=== PATIENT | female | born 1975 | race Caucasian/White ===

== ENCOUNTER 2019-09-30 15:31 | Emergency (ER) | payer OTHER, MEDICAID, SELFPAY ==
[2019-09-30 15:57] VITALS: BP 126/86; PULSE 76; RESP 20; TEMP 36.8; O2SAT 100
--- NOTE | 2019-09-30 16:01 | DI.US.S_ITS ---
PROCEDURE: US PERIPH VENOUS LOW EXTREM BI INDICATIONS: SWELLING IN BILAT EXT, HX OF DVT TECHNIQUE: Real-time imaging, as well as color and pulse Doppler interrogation, were performed of the deep veins of both legs from the inguinal ligament to the popliteal fossa. COMPARISON: None. FINDINGS: Right: The common femoral, femoral and popliteal veins are normally compressible, and free of intraluminal thrombus. Color and pulse Doppler demonstrate normal phasic intravascular flow. There is normal augmentation response to distal compression maneuver. Left: The common femoral, femoral and popliteal veins are normally compressible, and free of intraluminal thrombus. Color and pulse Doppler demonstrate normal phasic intravascular flow. There is normal augmentation response to distal compression maneuver. IMPRESSION: No evidence of deep vein thrombosis of the bilateral lower extremities. Dictated by: Rajan Cabrera M.D. on 09/30/2019 at 15:56 Approved by: Rajan Cabrera M.D. on 09/30/2019 at 15:58
--- NOTE | 2019-09-30 18:14 | ED_ITS ---
HPI - Extremity Problem General Chief complaint: Extremity Problem,Nontraumatic Stated complaint: Thinks Blood Clot In Right Leg Time Seen by Provider: 09/30/19 18:14 Source: patient Mode of arrival: Ambulatory Limitations: no limitations History of Present Illness HPI Narrative: 43-year-old female here for evaluation for potential blood clot in her right lower extremity. Patient has had a DVT in her left lower e xtremity. Was on Xarelto. Never had a pulmonary embolism. Is not currently on any anticoagulation. She states that then DVT was secondary to immobility at the time. States that earlier today she felt a lump in her right lower extremity. She also has history of varicose veins. Fairly pinpoint tenderness over this lump. No chest pain or shortness of breath. She was concerned about another blood clot. Related Data Home Medications Medication Instructions Recorded Confirmed thyroid (pork) [[place] Thyroid] 120 mg PO DAILY 09/30/19 Review of Systems Constitutional Constitutional: Denies fever(s) Cardiovascular Cardiovascular: Denies chest pain and Denies dyspnea Respiratory Respiratory: Denies dyspnea Gastrointestinal Gastrointestinal: Denies abdominal pain, Denies nausea and Denies vomiting Musculoskeletal Comments: Lump on her right lower extremity Integumentary/Breasts Skin/Breast: Denies lesions and Denies rash Neurologic Neurologic: Denies behavioral changes Psychiatric Psychiatric: Denies behavioral changes Hematologic/Lymphatic Hematologic/Lymphatic: Denies easy bleeding and Denies easy bruising Patient History Medical History DVT (deep venous thrombosis) (Acute) Varicose vein of leg (Acute) Social History lives independently: Yes Exam Initial Vital Signs Initial Vital Signs: Vital Signs Temperature 98.2 F 09/30/19 15:57 Pulse Rate 76 09/30/19 15:57 Respiratory Rate 20 09/30/19 15:57 Blood Pressure 126/86 09/30/19 15:57 Pulse Oximetry 100 09/30/19 15:57 Const General: cooperative, comfortable and well developed Resp Effort & Inspection: normal respiratory effort Skin Lesions: no lesions Rashes: no rashes Extrem Other: Patient with a 1 cm x 1 cm well-defined soft easily movable subcutaneous lump on the medial aspect of her right lower extremity approximately midline between the knee and the ankle. Psych Appearance: grossly normal and well kempt Course Orders Ordered: ED Orders 09/30/19 16:01 US periph venous low extrem bi Stat Vital Signs Vital signs: Vital Signs - 8 hr 09/30/19 15:57 09/30/19 18:37 Temperature 98.2 F Pulse Rate 76 85 Respiratory Rate 20 Blood Pressure 126/86 133/83 Pulse Oximetry 100 98 MDM - Extremity (Nontraumatic) Imaging Data US - DVT: Radiologist's Impression: [address] [address] Ultrasound Report Signed Patient: Gay Cummings#: [id number] : 1975Acct:[id number] Age/Sex: 43 / FDate of Service: 09/30/19 Loc: ED Accession Number: [id number] Procedure: US periph venous low extrem bi Ordering Provider: Adan Harding MD PROCEDURE: US PERIPH VENOUS LOW EXTREM BI INDICATIONS: SWELLING IN BILAT EXT, HX OF DVT TECHNIQUE: Real-time imaging, as well as color and pulse Doppler interrogation, were performed of the deep veins of both legs from the inguinal ligament to the popliteal fossa. COMPARISON: None. FINDINGS: Right: The common femoral, femoral and popliteal veins are normally compressible, and free of intraluminal thrombus. Color and pulse Doppler demonstrate normal phasic intravascular flow. There is normal augmentation response to distal compression maneuver. Left: The common femoral, femoral and popliteal veins are normally compressible, and free of intraluminal thrombus. Color and pulse Doppler demonstrate normal phasic intravascular flow. There is normal augmentation response to distal compression maneuver. IMPRESSION: No evidence of deep vein thrombosis of the bilateral lower extremities. Dictated by: Rajan Cabrera M.D. on 09/30/2019 at 15:56 Approved by: Rajan Cabrera M.D. on 09/30/2019 at 15:58 [facility] Narrative Medical decision making narrative: DVT ultrasound is negative. The lump in her right lower extremity is not consistent with an infection or abscess. Fairly localized. Could potentially be a varicose vein. Discussed this with the patient. We did discuss return precautions and follow-up instructions. She expressed understanding and agreement plan. Discharge Plan Departure Patient Disposition: Home Clinical Impression: Lump of skin of right lower extremity Discharge Date/Time: 09/30/19 18:38 Activity Restrictions/Additional Instructions: Recommend you talk with your primary provider about further workup. Return to the emergency department if the lump becomes larger or the skin over top of it becomes red. Prescriptions: No Action thyroid (pork) [[place] Thyroid] 60 mg tablet 120 mg PO DAILY RF: 0
[2019-09-30 18:37] VITALS: BP 133/83; PULSE 85; O2SAT 98
== END 2019-09-30 18:38 | disposition home or self-care (01) ==
PROVIDERS: Emergency Provider Emergency Medicine
DX: R22.41 Localized swelling, mass and lump, right lower limb (principal); Z86.718 Personal history of other venous thrombosis and embolism
CPT/HCPCS: 93970; 99281; 99283

== ENCOUNTER → 2021-11-22 16:49 | Outpatient (CLI) | payer OTHER, SELFPAY ==
[2021-11-22 18:27] LABS: COVID19 -Nasal RAPID Negative (Negative)
== END ==
PROVIDERS: PCP Internal Medicine; Visit Provider Obstetrics & Gynecology
DX: Z01.812 Encounter for preprocedural laboratory examination (principal); Z20.822 Contact with and (suspected) exposure to COVID-19
CPT/HCPCS: 87635

== ENCOUNTER 2021-11-23 13:23 | Day surgery (SDC) | payer OTHER, MEDICAID, SELFPAY ==
[2021-11-18 11:02] VITALS: BMI 30.8
--- NOTE | 2021-11-23 | PATH_ITS ---
[facility] Accession Number: [id number] . 01 Material submitted: . uterus - UTERINE CURETTINGS . 02 Diagnosis: Uterine Curettings: Patchy glandular crowding. Background of disordered proliferative endometrium; negative for cytologic atypia or malignancy. Some endometrial fragments demonstrate prominent vessels, suggestive of polyp, if clinical and imaging studies are concordant. Portions of squamous mucosa; negative for squamous dysplasia or malignancy. Portions of endocervix with squamous metaplasia; negative for dysplasia or malignancy. MRV 11/25/2021 1344 Local . 02 Electronically signed: . Daphne Salter MD, Pathologist NPI- [id number] . 01 Gross description: . UTERINE CURETTINGS: Received in formalin are minute fragments of mucoid and hemorrhagic material measuring 3.0 x 2.0 x 0.2 cm in aggregate. Submitted in toto in 1 cassette. /CPE 11/24/2021 0556 Local . 02 Pathologist provided ICD-10: N92.0 . 02 CPT . 527343 Specimen Comment: A courtesy copy of this report has been sent to [phone] Performed at: 01 [facility] Cytology [address] [facility], [place], [place] [id number] MD Kaiden Mir MD Phone: [phone] Performed at: 02 [facility] [address] [place], [place] [id number] MD Michelle Rodriguez MD Phone: [phone]
[2021-11-23 13:58] VITALS: BMI 30.8
[2021-11-23 14:09] VITALS: BP 130/78; PULSE 70; RESP 16; TEMP 36.3; O2SAT 100
[2021-11-23] MEDS: LACTATED RINGERS 1,000 ML 42 ML IV (14:13)
--- NOTE | 2021-11-23 14:47 | PM.PREOP ---
Pre-operative Note COVID-19 COVID-19 status: Negative Result date/Date tested (Pos, Neg/Pending): 11/22/21 Criteria for continued procedure: Expected advancement of disease process Interval Note History & Physical reviewed/Exam performed by Physician: Yes Changes to H&P: No
--- NOTE | 2021-11-23 15:34 | SUR.OPER ---
Lithotomy on padded OR bed, head on pillow, arms secured on padded arm boards at <90 degrees abduction. Legs secured in padded yellow fins stirrups.
[2021-11-23 15:38] VITALS: BP 114/56; PULSE 89; RESP 13; TEMP 36.4; O2SAT 99
--- NOTE | 2021-11-23 15:39 | P.OP_ITS ---
Operative Date/Time/Diagnoses Date of procedure: 11/23/21 Time of procedure: 15:39 Pre-op diagnosis: Menorrhagia Post-op diagnosis: same Procedure & Clinicians Procedure: Hysteroscopy D&C Same procedure as scheduled: Yes Indications: Menorrhagia Surgeon: Chloe Al Click Yes if Unassisted: Yes Anesthesia Type: General Operative Notes Findings: Bicornuate uterus, small endometrial polyps and endocervical polyps Closure Type: not applicable Specimen(s): other (Endometrial curettage) Estimated Blood Loss (mL): 5 Blood products transfused: none Procedure in detail: The patient was brought to the operating room where she underwent general anes thesia. She was placed in low stirrups. She was prepped and draped in usual sterile fashion with pulsatile stockings in place and functional, warming in place. No antibiotics indicated. Her bladder was drained with in and out catheter. A single-tooth tenaculum was placed on the anterior lip of the cervix and the uterus dilated to #8 Hegar dilator. The hysteroscope was placed into the uterus with a sorbitol solution running and under constant suction. An endometrial curettage was performed. The endometrial curettage was sent to pathology. The patient went to recovery room in good condition counts of instruments and sponges were correct. The sorbitol solution I=O approximately 2000 mL. Complications: none Post-operative Condition: stable Disposition: same day surgery Plan for aftercare: Home when awake and stable. Treatment and follow-up based on biopsy results.
[2021-11-23 15:43] VITALS: BP 120/61; PULSE 73; RESP 14; O2SAT 98
[2021-11-23 15:58] VITALS: BP 111/39; PULSE 64; RESP 13; O2SAT 100
[2021-11-23] MEDS: OXYCODONE IR 5 MG TABLET PO (16:04)
[2021-11-23] MEDS: hydrOXYzine pamoate 25 MG CAPSULE PO (16:04)
[2021-11-23 17:20] VITALS: BP 106/73; PULSE 73; RESP 16; O2SAT 100
== END 2021-11-23 17:25 | disposition home or self-care (01) ==
PROVIDERS: PCP Internal Medicine; Referring Provider Specialist; Visit Provider Specialist
PROC: 0UDB8ZZ Extraction of Endometrium, Via Natural or Artificial Opening Endoscopic (ICD-10-PCS; CPT 58558; principal; 2021-11-23 15:00)
DX: N92.0 Excessive and frequent menstruation with regular cycle (principal); E03.9 Hypothyroidism, unspecified; Z86.718 Personal history of other venous thrombosis and embolism; Q51.3 Bicornate uterus; N84.0 Polyp of corpus uteri; N84.1 Polyp of cervix uteri
CPT/HCPCS: 58558; 81025; J1100; J1885; J2250; J2405; J2704; J3010

== ENCOUNTER 2022-07-03 10:09 | Emergency (ER) | payer OTHER, MEDICAID, SELFPAY ==
[2022-07-03] VITALS (8 sets, daily range): BP systolic 117–142; BP diastolic 69–95; PULSE 63–76; RESP 13–22; TEMP 36.1; O2SAT 97–100; BMI 31.0
--- NOTE | 2022-07-03 12:13 | ED.MEDCLEAR ---
HPI - Medical Clearance General Chief complaint: Medical Clearance Stated complaint: haven't slept in a week sleeping issues since Radha Time Seen by Provider: 07/03/22 11:02 Source: patient Mode of arrival: Ambulatory History of Present Illness HPI Narrative: 46-year-old female nonsmoker with history of hypothyroid presents with significant other and a chief complaint of difficulty with sleep for the past few months. She states that she has tried everything she can think of regarding her sleep routine including lack of screens, no caffeine after 10:00 a.m., various [id number] medications including Benadryl, melatonin, Unisom, NyQuil and even smoked cannabis last night for the 1st time in 30 years. She is here today because she states she is not slept 1 minute for the past week and is fatigued and exhausted. She denies any significant stressors at home, change in work patterns, new [id number] medications or supplements. Related Information Home Medications Medication Instructions Recorded Confirmed thyroid (pork) 60 mg tablet 120 mg PO DAILY 09/30/19 11/23/21 ([place] Thyroid) Previous Rx's Medication Instructions Recorded tramadol 50 mg tablet 50 mg PO Q6H PRN pain #20 tabs 11/19/21 zolpidem 5 mg tablet (Ambien) 5 mg PO BEDTIME PRN insomnia #20 07/03/22 tabs Allergies Allergy/AdvReac Type Severity Reaction Status Date / Time No Known Drug Allergies Allergy Verified 11/22/21 15:03 Review of Systems Review of Systems Narrative: GENERAL: Denies chills, fatigue, malaise, fever, sweats. HEENT: Denies sinus pain, ear pain, sore throat, difficulty swallowing, dizziness. RESPIRATORY: Denies dyspnea, cough, wheezing, hemoptysis, sputum. CARDIOVASCULAR: Denies chest pain, palpitations, orthopnea, edema, GASTROINTESTINAL: Denies nausea, vomiting, abdominal pain, diarrhea, constipation, melena. : Denies dysuria, frequency, incontinence, hematuria, urinary retention. MUSCULOSKELETAL: denies weakness, joint pain, or bony pain SKIN: Denies rash, skin lesions, or other NEUROLOGIC: Denies weakness, headache, numbness, change in speech, confusion, seizures, incoordination. PSYCHIATRIC: No concerning psychosocial issues. 12 point review of systems is negative except for those stated above Patient History Medical History Abnormal Pap smear of cervix (~1998) Acne (~2020) Anemia Chicken pox (~1979) DVT (deep venous thrombosis) (~2017) Graves disease (~1994) Herpes (~1990) Irregular menstrual cycle Painful menstrual periods (~2017) Thyroid nodule (~1997) Varicose vein of leg Surgical History Anesthesia History of section (~10/1995) History of section (~08/1998) History of surgery (~2017) History of thyroid surgery (~04/2001) History of tubal ligation (~05/1999) Family History Father Congestive heart failure Mother Hyperlipidemia Social History household members: spouse and children lives independently: Yes Smoking Status: Former smoker alcohol intake: current Smoking Status: Former smoker alcohol intake frequency: a few times a month Substance Use Type: does not use Exam Narrative Exam Narrative: GENERAL: [46] year old patient appears stated age. Well-developed patient, in mild distress. Clearly frustrated HEAD: Atraumatic. Normocephalic. EYES: Pupils equal round and reactive. Extraocular motions intact. No scleral icterus. No injection or drainage. ENT: Nose without bleeding, purulent drainage. Throat without erythema, tonsillar hypertrophy or exudate. Airway patent. NECK: Trachea midline. Non tender CARDIOVASCULAR: Regular rate and rhythm without murmurs, gallops, or rubs. RESPIRATORY: Clear to auscultation. Breath sounds equal bilaterally. No wheezes, rales, or rhonchi. GASTROINTESTINAL: Abdomen soft, non-tender, nondistended. EXTREMITIES: No edema or joint tenderness. BACK: Nontender without deformity or crepitance. No flank tenderness. NEURO: AOx3. SKIN: No rash or erythema of visible areas Initial Vital Signs Initial Vital Signs: Vital Signs Temperature 96.9 F L 07/03/22 10:37 Pulse Rate 76 07/03/22 10:37 Respiratory Rate 18 07/03/22 10:37 Blood Pressure 117/70 07/03/22 10:37 Pulse Oximetry 99 07/03/22 10:37 Oxygen Delivery Method 10/30/22 10:37 MDM - Medical Clearance Lab Data Result diagrams: 07/03/22 12:40 07/03/22 12:40 Labs: Lab Results 07/03/22 07/03/22 07/03/22 Range/Units 12:40 12:40 12:40 WBC 5.4 (4.5-11.0) X10^3/uL RBC 4.59 (4.0-5.2) X10^6/uL Hgb 13.1 (12.0-16.0) g/dL Hct 38.9 (36-46) % MCV 84.7 (80-100) fL MCH 28.4 (26-34) PG MCHC 33.6 (30-36) % RDW 13.9 (11.6-14.8) % Plt Count 310 (150-400) X10^3/uL Neut % (Auto) 62.8 (50-75) % Lymph % (Auto) 28.9 (25-40) % [place] % (Auto) 6.1 (3-14) % Eos % (Auto) 1.2 L (2-4) % Baso % (Auto) 1.0 (0-2) % Neut # (Auto) 3400 (3824-7435) /uL Lymph # (Auto) 1600 (8141-5095) /uL [place] # (Auto) 300 (0-900) /uL Eos # (Auto) 100 (0-450) /uL Baso # (Auto) 100 (0-100) /uL Sodium 139 (137-145) mmol/L Potassium 4.7 (3.4-5.1) mmol/L Chloride 104 (98-107) mmol/L Carbon Dioxide 27 (22-32) mmol/L BUN 15 (7-17) mg/dL Creatinine 0.70 (0.52-1.04) mg/dL Estimated GFR > 60 (>60) mL/min BUN/Creatinine Ratio 21.4 (6-22) Glucose 78 (70-100) mg/dL Calcium 9.1 (8.4-10.2) mg/dL TSH 2.30 (0.47-4.68) uIU/mL Discharge Plan Departure Patient Disposition: Home Clinical Impression: Insomnia Activity Restrictions/Additional Instructions: *You have been diagnosed with [insomnia. Thankfully your history and physical exam are very reassuring and there are no significant lab abnormalities.] *What to do: *Please continue to take your regular medications as directed. [x ] New medication prescriptions sent to your pharmacy: [[facility] ] [ ] New medication written as a paper prescription [ ] No new medications given *Please follow up with your primary care provider in 2-3 days, call for an appointment. Let them know you were seen in the Emergency Department and that we ask that you be seen in follow up. We will electronically transmit a record of today's note if your PCP is in our system *If you do not have a primary care provider please contact the [facility] Resource line at [phone]. They will ask some questions about your medical history and help get you set up with a doctor in the community. *Return to Emergency Department if you should have any new, worsening or concerning symptoms, such as [fever greater than 101 F, shaking chills, worsening pain, persistent vomiting or other bothersome symptoms] Prescriptions: New zolpidem [Ambien] 5 mg tablet 5 mg PO BEDTIME PRN (Reason: insomnia) Qty: 20 0RF No Action tramadol 50 mg tablet 50 mg PO Q6H PRN (Reason: pain) Qty: 20 0RF Label Comments: post op prescription. has not yet started thyroid (pork) [[place] Thyroid] 60 mg tablet 120 mg PO DAILY Referrals: Patricio Maldonado MD [Primary Care Provider] -
[2022-07-03 12:53] LABS: Add Manual Diff / Slide Review NO; Basophils Absolute Auto 100 /uL (0-100); Eosinophils Absolute Auto 100 /uL (0-450); Eosinophils Percent Auto 1.2 % (2-4); Hematocrit 38.9 % (36-46); Hemoglobin 13.1 g/dL (12.0-16.0); Lymphocytes Absolute Auto 1600 /uL (1100-4500); Lymphocytes Percent Auto 28.9 % (25-40); Mean Corpuscular HGB Conc 33.6 % (30-36); Mean Corpuscular Hemoglobin 28.4 PG (26-34); Mean Corpuscular Volume 84.7 fL (80-100); Monocytes Absolute Auto 300 /uL (0-900); Monocytes Percent Auto 6.1 % (3-14); Neutrophils Absolute Auto 3400 /uL (1500-7000); Neutrophils Percent Auto 62.8 % (50-75); Platelet Count 310 X10^3/uL (150-400); Red Blood Cell Count 4.59 X10^6/uL (4.0-5.2); Red Cell Distribution Width 13.9 % (11.6-14.8); White Blood Cell Count 5.4 X10^3/uL (4.5-11.0)
[2022-07-03 13:01] LABS: BUN Creatinine Ratio 21.4 (6-22); Blood Urea Nitrogen 15 mg/dL (7-17); Calcium 9.1 mg/dL (8.4-10.2); Carbon Dioxide 27 mmol/L (22-32); Chloride 104 mmol/L (98-107); Estimated Glomerular Filt Rate > 60 mL/min (>60); Glucose 78 mg/dL (70-100); HEMOLYSIS < 15 (0-50); Potassium 4.7 mmol/L (3.4-5.1); Sodium 139 mmol/L (137-145)
== END 2022-07-03 14:22 | disposition home or self-care (01) ==
PROVIDERS: Emergency Provider Emergency Medicine; PCP Internal Medicine
DX: G47.00 Insomnia, unspecified (principal)
CPT/HCPCS: 36415; 80048; 84443; 85025; 99281; 99283

== ENCOUNTER 2022-11-27 03:44 | Emergency (ER) | payer OTHER, SELFPAY ==
[2022-11-27] VITALS (7 sets, daily range): BP systolic 108–123; BP diastolic 61–76; PULSE 55–64; RESP 16; TEMP 36.3; O2SAT 98–100; BMI 29.5
--- NOTE | 2022-11-27 04:10 | ED_ITS ---
HPI - Headache <Ana Zapien MD - Last Filed: 12/06/22 18:33> General Chief Complaint: Headache Stated Complaint: RT. side back of head pain Time Seen by Provider: 11/27/22 04:09 Mode of arrival: Ambulatory History of Present Illness HPI Narrative: 47-year-old woman with history of hypothyroidism who presents complaining right-sided stabbing head pain that has been a problem for the last 6 weeks. She is been having significant insomnia issues and this is overshadowed the head pain until this most recent week. On November 21 the head pain started. By the it had persisted long enough she called her primary care physician and has an appointment scheduled for November 30. They discussed the possibility of ordering an MRI. The patient states that she took some Aleve did not find it helpful has not used additional pain medication. She has a history of a DVT is not currently anticoagulated but tries to avoid nonsteroidals because of this history. She is very specific in that this is a sharp stabbing pain above her ear and on the side of her head rather than acute headache. She is not complaining of photophobia, nausea, dizziness, abdominal pain, fevers, vision changes Related Data Home Medications Medication Instructions Recorded Confirmed thyroid (pork) 60 mg tablet 120 mg PO DAILY 09/30/19 11/23/21 ([place] Thyroid) Previous Rx's Medication Instructions Recorded tramadol 50 mg tablet 50 mg PO Q6H PRN pain #20 tabs 11/19/21 zolpidem 5 mg tablet (Ambien) 5 mg PO BEDTIME PRN insomnia #20 07/03/22 tabs Allergies Allergy/AdvReac Type Severity Reaction Status Date / Time No Known Drug Allergies Allergy Verified 11/22/21 15:03 Patient History <Ana Zapien MD - Last Filed: 12/06/22 18:33> Medical History Abnormal Pap smear of cervix (~1998) Acne (~2020) Anemia Chicken pox (~1979) DVT (deep venous thrombosis) (~2017) Graves disease (~1994) Herpes (~1990) Irregular menstrual cycle Painful menstrual periods (~2017) Thyroid nodule (~1997) Varicose vein of leg Surgical History Anesthesia History of section (~10/1995) History of section (~08/1998) History of surgery (~2017) History of thyroid surgery (~04/2001) History of tubal ligation (~05/1999) Family History Father Congestive heart failure Mother Hyperlipidemia Social History household members: spouse and children lives independently: Yes Smoking Status: Former smoker alcohol intake: current Smoking Status: Former smoker alcohol intake frequency: a few times a month Substance Use Type: does not use Exam <Ana Zapien MD - Last Filed: 12/06/22 18:33> Initial Vital Signs Initial Vital Signs: Vital Signs Temperature 97.4 F L 11/27/22 03:58 Pulse Rate 64 11/27/22 03:58 Respiratory Rate 16 11/27/22 03:58 Blood Pressure 108/68 11/27/22 03:58 Pulse Oximetry 100 11/27/22 03:58 Oxygen Delivery Method Room Air 11/27/22 03:58 General: Healthy appearing, in no acute distress. Able to give a complete and coherent history. Well-nourished well-developed HEENT: Moist mucous membranes, normal sclera with reactive pupils, extraocular eye movement is intact. She does have dark circles under her eyes. She describes tenderness to palpation just above her ear on the right side with no skin changes or associated rash. pain is posterior to the ear and posterior to trigeminal enervation Neck: No Cervical adenopathy, supple Respiratory: Lungs are clear to auscultation, no wheezing no rales no rhonchi. Full and symmetrical air movement Cardiac: Regular rate and rhythm no murmurs no bruits Abdomen: Soft, nontender, good bowel tones, no flank pain Skin: Warm and dry, no rashes Neurologic: Grossly neurologically intact with no obvious asymmetries or abnormalities Extremities: No trauma, well perfused Psych: Cooperative, appropriate insight and affect <Sumaya Keene DO - Last Filed: 11/27/22 07:57> Initial Vital Signs Initial Vital Signs: Vital Signs Temperature 97.4 F L 11/27/22 03:58 Pulse Rate 64 11/27/22 03:58 Respiratory Rate 16 11/27/22 03:58 Blood Pressure 108/68 11/27/22 03:58 Pulse Oximetry 100 11/27/22 03:58 Oxygen Delivery Method Room Air 11/27/22 03:58 Course <Ana Zapien MD - Last Filed: 12/06/22 18:33> Orders Ordered: Discontinued Medications Dexamethasone (Dexamethasone 10 Mg/Ml Vial) 10 mg IV NOW ONE Stop: 11/27/22 04:26 Last Admin: 11/27/22 04:50 Dose: 10 mg Documented By: ZELALEM Sodium Chloride (Normal Saline 0.9%) 1,000 mls @ 1,000 mls/hr IV BOLUS ONE Stop: 11/27/22 05:24 Last Infusion: 11/27/22 05:51 Dose: 0 mls/hr Documented By: Admin: 11/27/22 04:51 Dose: 1,000 mls/hr Documented By: ZELALEM Ketorolac Tromethamine (Ketorolac 30 Mg/Ml Vial) 30 mg IV NOW ONE Stop: 11/27/22 04:26 Last Admin: 11/27/22 04:50 Dose: 30 mg Documented By: ZELALEM Vital Signs Vital signs: Vital Signs - 8 hr 11/27/22 03:58 11/27/22 05:17 11/27/22 05:17 Temperature 97.4 F L Pulse Rate 64 58 L Respiratory Rate 16 Blood Pressure 108/68 123/76 Pulse Oximetry 100 100 Oxygen Delivery Method Room Air 11/27/22 05:30 11/27/22 05:30 11/27/22 06:00 Temperature Pulse Rate 55 L Respiratory Rate Blood Pressure 119/72 117/72 Pulse Oximetry 100 Oxygen Delivery Method 11/27/22 06:00 11/27/22 06:30 11/27/22 06:30 Temperature Pulse Rate 60 59 L Respiratory Rate Blood Pressure 112/66 Pulse Oximetry 100 99 Oxygen Delivery Method 11/27/22 07:00 11/27/22 07:00 11/27/22 07:30 Temperature Pulse Rate 60 Respiratory Rate Blood Pressure 116/67 120/61 Pulse Oximetry 98 Oxygen Delivery Method 11/27/22 07:30 Temperature Pulse Rate 63 Respiratory Rate Blood Pressure Pulse Oximetry 99 Oxygen Delivery Method <Sumaya Keene DO - Last Filed: 11/27/22 07:57> Orders Ordered: Discontinued Medications Dexamethasone (Dexamethasone 10 Mg/Ml Vial) 10 mg IV NOW ONE Stop: 11/27/22 04:26 Last Admin: 11/27/22 04:50 Dose: 10 mg Documented By: ZELALEM Sodium Chloride (Normal Saline 0.9%) 1,000 mls @ 1,000 mls/hr IV BOLUS ONE Stop: 11/27/22 05:24 Last Infusion: 11/27/22 05:51 Dose: 0 mls/hr Documented By: Admin: 11/27/22 04:51 Dose: 1,000 mls/hr Documented By: ZELALEM Ketorolac Tromethamine (Ketorolac 30 Mg/Ml Vial) 30 mg IV NOW ONE Stop: 11/27/22 04:26 Last Admin: 11/27/22 04:50 Dose: 30 mg Documented By: ZELALEM Vital Signs Vital signs: Vital Signs - 8 hr 11/27/22 03:58 11/27/22 05:17 11/27/22 05:17 Temperature 97.4 F L Pulse Rate 64 58 L Respiratory Rate 16 Blood Pressure 108/68 123/76 Pulse Oximetry 100 100 Oxygen Delivery Method Room Air 11/27/22 05:30 11/27/22 05:30 11/27/22 06:00 Temperature Pulse Rate 55 L Respiratory Rate Blood Pressure 119/72 117/72 Pulse Oximetry 100 Oxygen Delivery Method 11/27/22 06:00 11/27/22 06:30 11/27/22 06:30 Temperature Pulse Rate 60 59 L Respiratory Rate Blood Pressure 112/66 Pulse Oximetry 100 99 Oxygen Delivery Method 11/27/22 07:00 11/27/22 07:00 11/27/22 07:30 Temperature Pulse Rate 60 Respiratory Rate Blood Pressure 116/67 120/61 Pulse Oximetry 98 Oxygen Delivery Method 11/27/22 07:30 Temperature Pulse Rate 63 Respiratory Rate Blood Pressure Pulse Oximetry 99 Oxygen Delivery Method MDM - Headache <Ana Zapien MD - Last Filed: 12/06/22 18:33> Lab Data 11/27/22 04:10 11/27/22 04:10 Labs: Lab Results 11/27/22 11/27/22 Range/Units 04:10 04:10 WBC 7.2 (4.5-11.0) X10^3/uL RBC 4.55 (4.0-5.2) X10^6/uL Hgb 13.2 (12.0-16.0) g/dL Hct 39.6 (36-46) % MCV 86.9 (80-100) fL MCH 29.0 (26-34) PG MCHC 33.4 (30-36) % RDW 14.2 (11.6-14.8) % Plt Count 321 (150-400) X10^3/uL Neut % (Auto) 56.4 (50-75) % Lymph % (Auto) 33.0 (25-40) % [place] % (Auto) 6.9 (3-14) % Eos % (Auto) 2.9 (2-4) % Baso % (Auto) 0.8 (0-2) % Neut # (Auto) 4100 (2978-5820) /uL Lymph # (Auto) 2400 (7637-6876) /uL [place] # (Auto) 500 (0-900) /uL Eos # (Auto) 200 (0-450) /uL Baso # (Auto) 100 (0-100) /uL ESR 12 (0-20) MM/HR Sodium 138 (137-145) mmol/L Potassium 4.3 (3.4-5.1) mmol/L Chloride 104 (98-107) mmol/L Carbon Dioxide 29 (22-32) mmol/L BUN 14 (7-17) mg/dL Creatinine 0.69 (0.52-1.04) mg/dL Estimated GFR > 60 (>60) mL/min BUN/Creatinine Ratio 20.3 (6-22) Glucose 99 (70-100) mg/dL Calcium 9.0 (8.4-10.2) mg/dL Total Bilirubin 0.4 (0.2-1.3) mg/dL AST 32 (14-36) IU/L ALT 28 (<35) IU/L Alkaline Phosphatase 59 (38-126) U/L C-Reactive Protein < 0.5 (<1.0) mg/dL Total Protein 7.4 (6.3-8.2) g/dL Albumin 4.2 (3.5-5.0) g/dL Globulin 3.2 (1.7-4.1) g/dL Albumin/Globulin Ratio 1.3 (1.0-2.8) MDM Narrative Medical decision making narrative: CC: Right posterior/ occipital head pain. Acute, uncertain diagnosis and prognosis Corroborating data: Data collected from: patient, Medical records reviewed: gynecology, primary care and prior ER notes are all reviewed Differential considered: migraine, cluster headache, tension headache, trigeminal neuralgia although distribution seems inappropriate on further questioning, zoster, intracranial mass or tumor Exam documented above, pertinent findings include: tenderness posterior to the ear and over the occiput without any cervical or posterior cervical adenopathy. No skin changes. Lab Test results independently reviewed as above. Pertinent findings: CBC is unremarkable Chemistries are within normal limits Imaging studies independently reviewed: CT head Treatments: 1 L of saline, 10 mg of IV dexamethasone to help with inflammation and Toradol is given. She does note that she is sleepy and that the edge is definitely gone from the headache still describes it as a 5/10 but significantly improved. Re-evaluations: Discussion: Disposition: see below, along with detailed discharge instructions that have been reviewed with patient as well as indications for ED re-evaluation and additional outpatient follow up <Sumaya Keene DO - Last Filed: 11/27/22 07:57> Lab Data Labs: Lab Results 11/27/22 11/27/22 Range/Units 04:10 04:10 WBC 7.2 (4.5-11.0) X10^3/uL RBC 4.55 (4.0-5.2) X10^6/uL Hgb 13.2 (12.0-16.0) g/dL Hct 39.6 (36-46) % MCV 86.9 (80-100) fL MCH 29.0 (26-34) PG MCHC 33.4 (30-36) % RDW 14.2 (11.6-14.8) % Plt Count 321 (150-400) X10^3/uL Neut % (Auto) 56.4 (50-75) % Lymph % (Auto) 33.0 (25-40) % [place] % (Auto) 6.9 (3-14) % Eos % (Auto) 2.9 (2-4) % Baso % (Auto) 0.8 (0-2) % Neut # (Auto) 4100 (4067-9257) /uL Lymph # (Auto) 2400 (6961-0165) /uL [place] # (Auto) 500 (0-900) /uL Eos # (Auto) 200 (0-450) /uL Baso # (Auto) 100 (0-100) /uL ESR 12 (0-20) MM/HR Sodium 138 (137-145) mmol/L Potassium 4.3 (3.4-5.1) mmol/L Chloride 104 (98-107) mmol/L Carbon Dioxide 29 (22-32) mmol/L BUN 14 (7-17) mg/dL Creatinine 0.69 (0.52-1.04) mg/dL Estimated GFR > 60 (>60) mL/min BUN/Creatinine Ratio 20.3 (6-22) Glucose 99 (70-100) mg/dL Calcium 9.0 (8.4-10.2) mg/dL Total Bilirubin 0.4 (0.2-1.3) mg/dL AST 32 (14-36) IU/L ALT 28 (<35) IU/L Alkaline Phosphatase 59 (38-126) U/L C-Reactive Protein < 0.5 (<1.0) mg/dL Total Protein 7.4 (6.3-8.2) g/dL Albumin 4.2 (3.5-5.0) g/dL Globulin 3.2 (1.7-4.1) g/dL Albumin/Globulin Ratio 1.3 (1.0-2.8) Imaging Data CT scan - head: Radiologist's Impression: PROCEDURE:? CT HEAD/BRAIN WO CON ? INDICATIONS:? right side head pain for 6 weeks ? TECHNIQUE:? Noncontrast 4.5 mm thick angled axial sections acquired from the foramen magnum to the vertex, with coronal and sagittal reformats.? For radiation dose reduction, the following was used:? automated exposure control, adjustment of mA and/or kV according to patient size.? ? COMPARISON:? None. ? FINDINGS:? Image quality:? Excellent.? ? CSF spaces:? Basal cisterns are patent.? No extra-axial fluid collections.? Ventricles are normal in size and shape.? ? Brain:? No midline shift.? No intracranial masses or hemorrhage.? Hicks-white matter interface is normal.? ? Skull and face:? Calvarium and visualized facial bones are intact, without suspicious lesions.? ? Sinuses:? Visualized sinuses and mastoids are clear.? ? IMPRESSION:? No acute intracranial abnormality. Concordant with preliminary interpretation. ? ? Dictated by: Monet Duarte M.D. on 11/27/2022 at 7:4 MDM Narrative Medical decision making narrative: CC: Right posterior/ occipital head pain. Acute, uncertain diagnosis and prognosis Corroborating data: Data collected from: patient, Medical records reviewed: gynecology, primary care and prior ER notes are all reviewed Differential considered: migraine, cluster headache, tension headache, trigeminal neuralgia although distribution seems inappropriate on further questioning, zoster, intracranial mass or tumor Exam documented above, pertinent findings include: tenderness posterior to the ear and over the occiput without any cervical or posterior cervical adenopathy. No skin changes. Lab Test results independently reviewed as above. Pertinent findings: CBC is unremarkable Chemistries are within normal limits Imaging studies independently reviewed: CT head Treatments: 1 L of saline, 10 mg of IV dexamethasone to help with inflammation and Toradol is given. She does note that she is sleepy and that the edge is definitely gone from the headache still describes it as a 5/10 but significantly improved. Re-evaluations: Discussion: Disposition: see below, along with detailed discharge instructions that have been reviewed with patient as well as indications for ED re-evaluation and additional outpatient follow up Dr. Keene-patient signed out to me by Dr. Alaniz. She is had ongoing burning sensation on the right side of her head for the last [address] today is negative blood work is reassuring. She was given Toradol saline and dexamethasone which she described as it improved however it seemed to be coming back. She is offered more pain medication however declines at this time. She is scheduled for an MRI on Monday she does not need an emergent MRI today. Discharge Plan Departure Patient Disposition: Home Clinical Impression: Head pain cephalgia Qualifiers: Headache type: unspecified Headache chronicity pattern: acute headache Intractability: not intractable Qualified Code(s): R51.9 - Headache, unspecified Instructions: DI for Headache Activity Restrictions/Additional Instructions: Thank you for coming in today Your blood work was actually reassuring. There is no evidence of significant electrolyte abnormalities, kidney or liver issues. Your CBC was reassuring with no evidence of bacterial infection. The CT scan was unremarkable. I do not have a full explanation for the right-sided head pain you are experiencing. It is behind the trigeminal nerve so I do not think that this is a trigeminal neuralgia. Please make sure you keep your appointment with your primary care doctor. I hope you find a fixable solution to this pain. Prescriptions: No Action tramadol 50 mg tablet 50 mg PO Q6H PRN (Reason: pain) Qty: 20 0RF Patient Comments: post op prescription. has not yet started thyroid (pork) [[place] Thyroid] 60 mg tablet 120 mg PO DAILY zolpidem [Ambien] 5 mg tablet 5 mg PO BEDTIME PRN (Reason: insomnia) Qty: 20 0RF Referrals: Kimber Diaz PA-C [Primary Care Provider] - Stand Alone Forms: Patient Portal/API
[2022-11-27 04:39] LABS: Alanine Aminotransferase 28 IU/L (<35); Albumin 4.2 g/dL (3.5-5.0); Albumin Globulin Ratio 1.3 (1.0-2.8); Alkaline Phosphatase 59 U/L (38-126); Aspartate Aminotransferase 32 IU/L (14-36); BUN Creatinine Ratio 20.3 (6-22); Bilirubin Total 0.4 mg/dL (0.2-1.3); Blood Urea Nitrogen 14 mg/dL (7-17); Carbon Dioxide 29 mmol/L (22-32); Chloride 104 mmol/L (98-107); Estimated Glomerular Filt Rate > 60 mL/min (>60); Globulin 3.2 g/dL (1.7-4.1); Glucose 99 mg/dL (70-100); HEMOLYSIS 34 (0-50); Potassium 4.3 mmol/L (3.4-5.1); Sodium 138 mmol/L (137-145); Total Protein 7.4 g/dL (6.3-8.2)
[2022-11-27] MEDS: DEXAMETHASONE 10 MG/ML VIAL IV (04:50)
[2022-11-27] MEDS: KETOROLAC 30 MG/ML VIAL IV (04:50)
[2022-11-27] MEDS: SODIUM CHLORIDE 0.9% 1,000 ML 1000 ML IV (04:51)
[2022-11-27 04:52] LABS: Erythrocyte Sedimentation Rate 12 MM/HR (0-20)
[2022-11-27 04:56] LABS: Add Manual Diff / Slide Review NO; Basophils Absolute Auto 100 /uL (0-100); Basophils Percent Auto 0.8 % (0-2); Eosinophils Absolute Auto 200 /uL (0-450); Eosinophils Percent Auto 2.9 % (2-4); Hematocrit 39.6 % (36-46); Hemoglobin 13.2 g/dL (12.0-16.0); Lymphocytes Absolute Auto 2400 /uL (1100-4500); Mean Corpuscular HGB Conc 33.4 % (30-36); Mean Corpuscular Volume 86.9 fL (80-100); Monocytes Absolute Auto 500 /uL (0-900); Monocytes Percent Auto 6.9 % (3-14); Neutrophils Absolute Auto 4100 /uL (1500-7000); Neutrophils Percent Auto 56.4 % (50-75); Platelet Count 321 X10^3/uL (150-400); Red Blood Cell Count 4.55 X10^6/uL (4.0-5.2); Red Cell Distribution Width 14.2 % (11.6-14.8); White Blood Cell Count 7.2 X10^3/uL (4.5-11.0)
--- NOTE | 2022-11-27 05:04 | DI.CT.S_ITS ---
PROCEDURE: CT HEAD/BRAIN WO CON INDICATIONS: right side head pain for 6 weeks TECHNIQUE: Noncontrast 4.5 mm thick angled axial sections acquired from the foramen magnum to the vertex, with coronal and sagittal reformats. For radiation dose reduction, the following was used: automated exposure control, adjustment of mA and/or kV according to patient size. COMPARISON: None. FINDINGS: Image quality: Excellent. CSF spaces: Basal cisterns are patent. No extra-axial fluid collections. Ventricles are normal in size and shape. Brain: No midline shift. No intracranial masses or hemorrhage. Hicks-white matter interface is normal. Skull and face: Calvarium and visualized facial bones are intact, without suspicious lesions. Sinuses: Visualized sinuses and mastoids are clear. IMPRESSION: No acute intracranial abnormality. Concordant with preliminary interpretation. Dictated by: Monet Duarte M.D. on 11/27/2022 at 7:41 Approved by: Monet Duarte M.D. on 11/27/2022 at 7:41
[2022-11-29 02:06] LABS: C-Reactive Protein Quant < 0.5 mg/dL (<1.0)
== END 2022-11-27 07:48 | disposition home or self-care (01) ==
PROVIDERS: Emergency Medicine; Emergency Provider Emergency Medicine; PCP Physician Assistant
DX: R51.9 Headache, unspecified (principal)
CPT/HCPCS: 36415; 70450; 80053; 85025; 85651; 86140; 96361; 96374; 96375; 99284; J1100; J1885

== ENCOUNTER 2022-12-01 20:00 | Emergency (ER) | payer OTHER, SELFPAY ==
[2022-12-01 20:10] VITALS: BP 143/84; PULSE 72; RESP 18; TEMP 36.6; O2SAT 99
[2022-12-01 21:00] LABS: Erythrocyte Sedimentation Rate 13 MM/HR (0-20)
[2022-12-01 21:05] LABS: C-Reactive Protein Quant < 0.5 mg/dL (<1.0)
--- NOTE | 2022-12-01 21:27 | ED.HA ---
HPI - Headache General Chief Complaint: Headache Stated Complaint: stabbing pain lt side of head, rt sided head pain Time Seen by Provider: 12/01/22 20:36 Source: patient Mode of arrival: Ambulatory History of Present Illness HPI Narrative: Patient is a 47-year-old female who has been having a right-sided headache for some time. She is scheduled for an MRI tomorrow. She states that it is on the right side of her head both at the top of into the back of her right ear. She is also having pain down the back of her head in the back of her neck. There is no skin rashes. She states she was told to come to the emergency department to have inflammatory markers drawn. Related Data Home Medications Medication Instructions Recorded Confirmed thyroid (pork) 60 mg tablet 120 mg PO DAILY 09/30/19 11/23/21 ([place] Thyroid) Previous Rx's Medication Instructions Recorded tramadol 50 mg tablet 50 mg PO Q6H PRN pain #20 tabs 11/19/21 zolpidem 5 mg tablet (Ambien) 5 mg PO BEDTIME PRN insomnia #20 07/03/22 tabs Allergies Allergy/AdvReac Type Severity Reaction Status Date / Time No Known Drug Allergies Allergy Verified 11/22/21 15:03 Review of Systems Constitutional Constitutional: Reports system reviewed and no additional complaints, except as documented Eyes Eyes: Reports system reviewed and no additional complaints, except as documented ENT Ears, Nose, Mouth, and Throat: Reports system reviewed and no additional complaints, except as documented Integumentary/Breasts Skin/Breast: Reports system reviewed and no additional complaints, except as documented Patient History Medical History Abnormal Pap smear of cervix (~1998) Acne (~2020) Anemia Chicken pox (~1979) DVT (deep venous thrombosis) (~2017) Graves disease (~1994) Herpes (~1990) Irregular menstrual cycle Painful menstrual periods (~2017) Thyroid nodule (~1997) Varicose vein of leg Surgical History Anesthesia History of section (~10/1995) History of section (~08/1998) History of surgery (~2017) History of thyroid surgery (~04/2001) History of tubal ligation (~05/1999) Family History Father Congestive heart failure Mother Hyperlipidemia Social History household members: spouse and children lives independently: Yes Smoking Status: Former smoker alcohol intake: current Smoking Status: Former smoker alcohol intake frequency: a few times a month Substance Use Type: does not use Exam Initial Vital Signs Initial Vital Signs: Vital Signs Temperature 97.9 F 12/01/22 20:10 Pulse Rate 72 12/01/22 20:10 Respiratory Rate 18 12/01/22 20:10 Blood Pressure 143/84 H 12/01/22 20:10 Pulse Oximetry 99 12/01/22 20:10 Oxygen Delivery Method Room Air 12/01/22 20:10 HENMT Head: normal to inspection and normocephalic Ears: TM's normal bilaterally Resp Effort & Inspection: normal respiratory effort Cardio Rate: regular rate Back/Spine/Pelvis Other: Right-sided upper back him paracervical discomfort Skin General: no rashes or lesions noted Course Orders Ordered: ED Orders 12/01/22 20:36 CRP [C-Reactive Protein Quant] Stat ESR [Erythrocyte Sedimentation Rate] Stat Vital Signs Vital signs: Vital Signs - 8 hr 12/01/22 21:38 Pulse Rate 71 Blood Pressure 120/72 Pulse Oximetry 97 Oxygen Delivery Method Room Air MDM - Headache Lab Data Labs: Lab Results 12/01/22 12/01/22 Range/Units 20:36 20:36 ESR 13 (0-20) MM/HR C-Reactive Protein < 0.5 (<1.0) mg/dL MDM Narrative Medical decision making narrative: Her ESR and CRP are normal. There unchanged from a couple days ago. She has a MRI already scheduled for tomorrow. She did have seem to have a trigger point in her right upper back. I did a trigger point injection with 2 cc of 1% lidocaine without epi. No further workup required here in the emergency department. I do agree that she needs an MRI. There are no skin changes over the area concerning for zoster. Her ear is unremarkable as well. We discussed return precautions. She expressed understanding and agreement. Discharge Plan Departure Patient Disposition: Home Clinical Impression: Headache Instructions: DI for Headache Activity Restrictions/Additional Instructions: I do recommend that you keep your appointment for the MRI that is scheduled for tomorrow. Contact your primary doctor for a follow-up. Return to the emergency department for new symptoms. Prescriptions: No Action tramadol 50 mg tablet 50 mg PO Q6H PRN (Reason: pain) Qty: 20 0RF Patient Comments: post op prescription. has not yet started thyroid (pork) [[place] Thyroid] 60 mg tablet 120 mg PO DAILY zolpidem [Ambien] 5 mg tablet 5 mg PO BEDTIME PRN (Reason: insomnia) Qty: 20 0RF Referrals: Kimber Diaz PA-C [Primary Care Provider] - Stand Alone Forms: Patient Portal/API
[2022-12-01 21:38] VITALS: BP 120/72; PULSE 71; O2SAT 97
== END 2022-12-01 21:51 | disposition home or self-care (01) ==
PROVIDERS: Emergency Provider Emergency Medicine; PCP Physician Assistant; Referring Provider Physician Assistant
DX: R51.9 Headache, unspecified (principal)
CPT/HCPCS: 36415; 85651; 86140; 99281; 99283

== ENCOUNTER → 2022-12-04 10:39 | Outpatient (CLI) | payer OTHER, MEDICAID, SELFPAY ==
--- NOTE | 2022-12-04 10:40 | DI.MRI.S_ITS ---
PROCEDURE: MR HEAD/BRAIN WO/W CON INDICATIONS: STABBING PAIN TECHNIQUE: Noncontrast axial T1 spin echo, axial T2 fast spin echo, sagittal and axial FLAIR, coronal T2 fast spin echo, axial gradient echo, axial diffusion and ADC through the brain. After the administration of contrast, axial and coronal and sagittal 3D VIBE or T1 spin echo with fat saturation through the brain. COMPARISON: [facility], CT, CT HEAD/BRAIN WO CON, 11/27/2022, 5:07. FINDINGS: Image quality: Excellent. CSF Spaces: Basal cisterns are patent. No extra-axial fluid collections. Ventricles are normal in size and shape. Brain: No midline shift. No intracranial bleeds or masses. No abnormal intracranial enhancement. The brainstem appears normal. Diffusion-weighted images demonstrate no acute ischemic insults. No chronic ischemic insults. Normal intravascular flow voids are present. Skull and face: Calvarial marrow is normal in signal. Orbits appear normal. Sinuses: Sinuses and mastoids appear clear. IMPRESSION: 1. No acute intracranial process. Dictated by: Abbey Ulloa M.D. on 12/05/2022 at 12:26 Approved by: Abbey Ulloa M.D. on 12/05/2022 at 12:28
== END ==
PROVIDERS: PCP Physician Assistant; Referring Provider Physician Assistant; Visit Provider Physician Assistant
DX: R52 Pain, unspecified (principal); T78.40XA Allergy, unspecified, initial encounter
CPT/HCPCS: 70553; A9579

== ENCOUNTER 2023-12-09 11:20 | Emergency (ER) | payer OTHER, SELFPAY ==
[2023-12-09 11:25] VITALS: BP 149/69; PULSE 79; RESP 16; TEMP 36.8; O2SAT 100; BMI 32.9
--- NOTE | 2023-12-09 11:31 | ED_ITS ---
HPI - Fall <Mc Fried PA-C - Last Filed: 12/09/23 13:28> General Chief Complaint: Fall Stated Complaint: fall Time Seen by Provider: 12/09/23 11:31 Source: patient Mode of arrival: Ambulatory History of Present Illness HPI Narrative: This is a 48-year-old female presents emergency department due to a mechanical fall and landing on her buttocks. [place] on some seaweed landing on her buttocks. She states that she did lose conscious after the fall. Complaining primarily of buttock pain with some radiation up her lower back. Does not report hitting her head. Also complaining of left wrist pain. No cardiac history. Denies any nausea, vomiting, chest pain rest, or pain radiating down the left shoulder and arm. It was complaining of some sternal pain that is worse with movement and palpation which she suspects is due to her ?myofascial connection? as she was had in the past. Related Data Home Medications Medication Instructions Recorded Confirmed thyroid (pork) 60 mg tablet 120 mg PO DAILY 09/30/19 11/23/21 ([place] Thyroid) Previous Rx's Medication Instructions Recorded tramadol 50 mg tablet 50 mg PO Q6H PRN pain #20 tabs 11/19/21 zolpidem 5 mg tablet (Ambien) 5 mg PO BEDTIME PRN insomnia #20 07/03/22 tabs cyclobenzaprine 10 mg tablet 10 mg PO TID PRN muscle spasm #20 12/09/23 tabs Allergies Allergy/AdvReac Type Severity Reaction Status Date / Time oxycodone AdvReac ITCHING Verified 12/09/23 11:25 Review of Systems <Mc Fried PA-C - Last Filed: 12/09/23 13:28> Review of Systems Narrative: GENERAL: Denies chills, fatigue, malaise, fever, sweats. HEENT: Denies sinus pain, ear pain, sore throat, difficulty swallowing, dizziness. RESPIRATORY: Denies dyspnea, cough, wheezing, hemoptysis, sputum. CARDIOVASCULAR: Reports sternal pain, Denies palpitations, orthopnea, edema, GASTROINTESTINAL: Denies nausea, vomiting, abdominal pain, diarrhea, constipation, melena. : Denies dysuria, frequency, incontinence, hematuria, urinary retention. MUSCULOSKELETAL: Reports buttock, lower back pain, left wrist pain,. SKIN: Denies rash, skin lesions, or other NEUROLOGIC: Denies weakness, headache, numbness, change in speech, confusion, seizures, incoordination. PSYCHIATRIC: No concerning psychosocial issues. 12 point review of systems is negative except for those stated above Patient History <Mc Fried PA-C - Last Filed: 12/09/23 13:28> Medical History Abnormal Pap smear of cervix (~1998) Acne (~2020) Anemia Chicken pox (~1979) DVT (deep venous thrombosis) (~2017) Graves disease (~1994) Herpes (~1990) Irregular menstrual cycle Painful menstrual periods (~2017) Thyroid nodule (~1997) Varicose vein of leg Surgical History Anesthesia History of section (~10/1995) History of section (~08/1998) History of surgery (~2017) History of thyroid surgery (~04/2001) History of tubal ligation (~05/1999) Family History Father Congestive heart failure Mother Hyperlipidemia Social History household members: spouse and children lives independently: Yes Smoking Status: Former smoker alcohol intake: current Smoking Status: Former smoker alcohol intake frequency: a few times a month Substance Use Type: does not use Exam <Mc Fried PA-C - Last Filed: 12/09/23 13:28> Narrative Exam Narrative: GENERAL: Well-developed patient, in mild distress. HEAD: Atraumatic. Normocephalic. EYES: Pupils equal round and reactive. Extraocular motions intact. No scleral icterus. No injection or drainage. ENT: Nose without bleeding, purulent drainage. Throat without erythema, tonsillar hypertrophy or exudate. Airway patent. NECK: Trachea midline. Non tender EXTREMITIES: Tenderness to palpation to the bilateral buttock area NEURO: AOx3. SKIN: No rash or erythema of visible areas CARDIOVASCULAR: Regular rate and rhythm without murmurs, gallops, or rubs. Tenderness to palpation to the sternum RESPIRATORY: Clear to auscultation. Breath sounds equal bilaterally. No wheezes, rales, or rhonchi. GASTROINTESTINAL: Abdomen soft, non-tender, nondistended. BACK: Tenderness to palpation to the midline lumbar spine Initial Vital Signs Initial Vital Signs: Vital Signs Temperature 98.3 F 12/09/23 11:25 Pulse Rate 79 12/09/23 11:25 Respiratory Rate 16 12/09/23 11:25 Blood Pressure 149/69 H 12/09/23 11:25 Pulse Oximetry 100 12/09/23 11:25 Oxygen Delivery Method Room Air 12/09/23 11:25 <Sumaya Keene DO - Last Filed: 12/09/23 14:23> Initial Vital Signs Initial Vital Signs: Vital Signs Temperature 98.3 F 12/09/23 11:25 Pulse Rate 79 12/09/23 11:25 Respiratory Rate 16 12/09/23 11:25 Blood Pressure 149/69 H 12/09/23 11:25 Pulse Oximetry 100 12/09/23 11:25 Oxygen Delivery Method Room Air 12/09/23 11:25 Course <Mc Fried PA-C - Last Filed: 12/09/23 13:28> Orders Ordered: ED Orders 12/09/23 11:33 XR sacrum coccyx min 2V Stat EKG-12 Lead Stat 12/09/23 11:39 XR lumbar spine 2-3V Stat XR wrist LT min 3V Stat Discontinued Medications Ibuprofen (Ibuprofen 400 Mg Tablet) 800 mg PO NOW ONE Stop: 12/09/23 13:22 Last Admin: 12/09/23 13:37 Dose: 800 mg Documented By: RLS Vital Signs Vital signs: Vital Signs - 8 hr 12/09/23 11:25 12/09/23 14:00 Temperature 98.3 F Pulse Rate 79 78 Respiratory Rate 16 16 Blood Pressure 149/69 H 143/62 H Pulse Oximetry 100 98 Oxygen Delivery Method Room Air Room Air <Sumaya Keene DO - Last Filed: 12/09/23 14:23> Orders Ordered: ED Orders 12/09/23 11:33 XR sacrum coccyx min 2V Stat EKG-12 Lead Stat 12/09/23 11:39 XR lumbar spine 2-3V Stat XR wrist LT min 3V Stat Discontinued Medications Ibuprofen (Ibuprofen 400 Mg Tablet) 800 mg PO NOW ONE Stop: 12/09/23 13:22 Last Admin: 12/09/23 13:37 Dose: 800 mg Documented By: AUGIE Vital Signs Vital signs: Vital Signs - 8 hr 12/09/23 11:25 12/09/23 14:00 Temperature 98.3 F Pulse Rate 79 78 Respiratory Rate 16 16 Blood Pressure 149/69 H 143/62 H Pulse Oximetry 100 98 Oxygen Delivery Method Room Air Room Air MDM - Fall <Mc Fried PA-C - Last Filed: 12/09/23 13:28> Imaging Data Sacrum/coccyx: Radiologist's Impression: [place] [address] XRay Report Signed Patient: Nayana Amos MR#: [id number] : 1975 Acct:[id number] Age/Sex: 48 / F Date of Service: 12/09/23 Loc: ED Accession Number: [id number] Procedure: XR sacrum coccyx min 2V Ordering Provider: Mc Fried P.A-C PROCEDURE: XR SACRUM COCCYX MIN 2V INDICATIONS: fall TECHNIQUE: 3 views of the sacrum and coccyx acquired. COMPARISON: None. FINDINGS: Bones: No fractures or dislocations. No suspicious bony lesions. Soft tissues: Visualized bowel gas pattern is normal. No suspicious soft tissue densities. Left inguinal surgical clips IMPRESSION: No fracture or traumatic malalignment Approved by: Jaxon Jackson M.D. on 12/09/2023 at 11:59 Lumbar XR : Radiologist's Impression: [address] [address] XRay Report Signed Patient: Nayana Amos MR#: [id number] : 1975 Acct:[id number] Age/Sex: 48 / F Date of Service: 12/09/23 Loc: ED Accession Number: [id number] Procedure: XR lumbar spine 2-3V Ordering Provider: Mc Fried P.A-C PROCEDURE: XR LUMBAR SPINE 2-3V INDICATIONS: Midline LBP after fall TECHNIQUE: 3 views of the lumbar spine were acquired. COMPARISON: None. FINDINGS: Bones: 5 [id number] vertebrae are present. There is normal bony alignment. No vertebral body compression fractures. No suspicious bony lesions. Lower lumbar spine disc space narrowing hypertrophic facet joints Soft tissues: Overlying bowel gas pattern is normal. No suspicious soft tissue calcifications. IMPRESSION: Degenerative disc disease and arthropathy without fracture or traumatic malalignment Approved by: Jaxon Jackson M.D. on 12/09/2023 at 12:00 Wrist XR : Radiologist's Impression: [address] [address] XRay Report Signed Patient: Nayana Amos MR#: [id number] : 1975 Acct:[id number] Age/Sex: 48 / F Date of Service: 12/09/23 Loc: ED Accession Number: [id number] Procedure: XR wrist LT min 3V Ordering Provider: Mc Fried P.A-C PROCEDURE: XR WRIST LT MIN 3V INDICATIONS: L wrist pain after fall TECHNIQUE: 4 views of the wrist were acquired. COMPARISON: None. FINDINGS: Bones: No fractures or dislocations. No suspicious bony lesions. Soft tissues: No suspicious soft tissue calcifications. IMPRESSION: No acute bony abnormality. Approved by: Jaxon Jackson M.D. on 12/09/2023 at 12:02 ECG Data Interpretation: 1140: EKG is normal sinus rhythm rate 71 and free of any signs of ischemia or ectopy. No ST segmental elevation or depression. No T wave inversions MDM Narrative Medical decision making narrative: ED course: This is a 48-year-old female presents emergency department due to a mechanical ground level fall where she landed on her buttocks. Complaining of wrist pain, lower back pain, and buttock pain. All x-rays were negative. She did describe having some ?sternal pain?. EKG was unremarkable. Suspect this is due to the fall. She has described having a similar pain in the past and it being ?myofascial?. Not presenting with any signs of any possible cardiac event and no prior cardiac history. Focus for ACS. Patient declined Toradol but requested p.o. ibuprofen which will be given. Recommended supportive care. Muscle relaxants prescribed. No saddle paresthesias or incontinence. CC: Buttock pain Complicating co-morbidities: None Data collected from: Previous notes Medical records reviewed: Patient was last seen here about a year ago for a right-sided headache. History of Graves disease. Recommended for outpatient MRI. Differential considered, but not limited to: Fracture, ACS, soft tissue injury Exam documented above, pertinent findings include: Tenderness to palpation although x-rays negative. Sternal pain is reproducible with palpation Lab Test results independently reviewed as above. Pertinent findings: None o btained Imaging studies independently reviewed: X-rays negative for fractures Scores Used: None MIPS Elements: None Consultations: None Treatments: P.o. ibuprofen Re-evaluations: None Discussion: Discussed plan with the patient was comfortable with the plan Diagnosis: Buttock pain Disposition: see below, along with detailed discharge instructions that have been reviewed with patient as well as indications for ED re-evaluation and additional outpatient follow up Discharge Plan Departure Patient Disposition: Home Clinical Impression: Fall from ground level Activity Restrictions/Additional Instructions: Thank you for coming to the [facility] Emergency Department today. As we discussed all your x-rays were negative for fractures. I suspect this is all soft tissue in nature. Please do not take the muscle relaxants before driving as it may make you feel a bit ?woozy?. You may use ibuprofen and Tylenol as needed for the pain. Your EKG was reassuring as well. Please return to the emergency department if you develop any numbness between her legs, incontinence, or any other concerning signs or symptoms. I hope you feel better soon. Please follow up with your primary care provider within a week if your symptoms continue. If you do not have a primary care provider please contact the [facility] Resource line at [phone]. They will ask some questions about your medical history and help you get set up with a provider in the community. Prescriptions: New cyclobenzaprine 10 mg tablet 10 mg PO TID PRN (Reason: muscle spasm) Qty: 20 0RF No Action tramadol 50 mg tablet 50 mg PO Q6H PRN (Reason: pain) Qty: 20 0RF Patient Comments: post op prescription. has not yet started thyroid (pork) [[place] Thyroid] 60 mg tablet 120 mg PO DAILY zolpidem [Ambien] 5 mg tablet 5 mg PO BEDTIME PRN (Reason: insomnia) Qty: 20 0RF Referrals: Kimber Diaz PA-C [Primary Care Provider] - Stand Alone Forms: Patient Portal/API ED Sign-out <Sumaya Keene DO - Last Filed: 12/09/23 14:23> Cosign ED Attending Peter Attestation: I was available for consultation.
--- NOTE | 2023-12-09 11:39 | DI.RAD.S_ITS ---
PROCEDURE: XR WRIST LT MIN 3V INDICATIONS: L wrist pain after fall TECHNIQUE: 4 views of the wrist were acquired. COMPARISON: None. FINDINGS: Bones: No fractures or dislocations. No suspicious bony lesions. Soft tissues: No suspicious soft tissue calcifications. IMPRESSION: No acute bony abnormality. Approved by: Jaxon Jackson M.D. on 12/09/2023 at 12:02
--- NOTE | 2023-12-09 11:39 | DI.RAD.S_ITS ---
PROCEDURE: XR LUMBAR SPINE 2-3V INDICATIONS: Midline LBP after fall TECHNIQUE: 3 views of the lumbar spine were acquired. COMPARISON: None. FINDINGS: Bones: 5 [id number]-gaespus vertebrae are present. There is normal bony alignment. No vertebral body compression fractures. No suspicious bony lesions. Lower lumbar spine disc space narrowing hypertrophic facet joints Soft tissues: Overlying bowel gas pattern is normal. No suspicious soft tissue calcifications. IMPRESSION: Degenerative disc disease and arthropathy without fracture or traumatic malalignment Approved by: Jaxon Jackson M.D. on 12/09/2023 at 12:00
[2023-12-09] MEDS: IBUPROFEN 400 MG TABLET 800 MG PO (13:37)
[2023-12-09 14:00] VITALS: BP 143/62; PULSE 78; RESP 16; O2SAT 98
== END 2023-12-09 14:08 | disposition home or self-care (01) ==
PROVIDERS: Emergency Provider Physician Assistant Medical; PCP Physician Assistant
DX: M54.50 Low back pain, unspecified (principal); M25.532 Pain in left wrist; R07.9 Chest pain, unspecified; W01.0XXA Fall on same level from slipping, tripping and stumbling without subsequent striking against object, initial encounter
CPT/HCPCS: 72100; 72220; 73110; 93005; 99283; 99284